=== PATIENT | female | born 1960 | race Caucasian/White ===

== ENCOUNTER 2018-08-13 20:46 | Inpatient (IN) | payer OTHER ==
[2018-08-13] MEDS: morphine 4 MG/ML VIAL IV ×2 (22:29→23:48)
[2018-08-13] MEDS: KETOROLAC 30 MG INJ IV (22:29)
[2018-08-13] MEDS: DIAZEPAM 5 MG/ML SYG IV (22:29)
[2018-08-13] MEDS: METHYLPREDNISOLONE 125 MG INJ IV (22:29)
[2018-08-13] MEDS: ONDANSETRON 4 MG INJ IV (23:48)
[2018-08-14 00:06] LABS: ADD MAN DIFF? NO
[2018-08-14 00:11] LABS: BASOPHILS % 0.4 % (0.0-2.0); EOSINOPHILS # 0.1 10^3/ul (0.0-0.5); EOSINOPHILS % 1.5 % (0.0-7.0); HEMATOCRIT 33.8 % (37.0-47.0); LYMPHOCYTES # 1.8 10^3/ul (0.8-2.9); LYMPHOCYTES % 24.5 % (15.0-51.0); MEAN CORPUSCULAR HGB CONC 32.5 g/dl (32.0-37.0); MEAN CORPUSCULAR VOLUME 89.2 fl (82.0-101.0); MEAN PLATELET VOLUME 9.4 fl (7.4-10.4); MONOCYTE # 0.4 10^3/ul (0.3-0.9); MONOCYTES % 5.7 % (0.0-11.0); NEUTROPHILS % 67.5 % (39.0-77.0); PLATELET COUNT 258 10^3/UL (140-415); RED BLOOD COUNT 3.79 10^6/ul (4.20-5.40); RED CELL DISTRIBUTION WIDTH 12.4 % (11.5-14.5)
[2018-08-14 00:11] LABS: WHITE BLOOD COUNT 7.4 10^3/ul (4.8-10.8)
[2018-08-14 00:24] LABS: ADD UMIC YES; UR AMORPHOUS CRYSTAL FEW /HPF (NONE SEEN); UR ASCORBIC ACID NEGATIVE (NEGATIVE); UR BACTERIA FEW /HPF (NONE SEEN); UR BILIRUBIN (Dip) NEGATIVE (NEGATIVE); UR BLOOD (Dip) NEGATIVE (NEGATIVE); UR CLARITY CLOUDY (CLEAR); UR COLOR YELLOW (YELLOW); UR GLUCOSE (Dip) NEGATIVE (NEGATIVE); UR KETONES (Dip) NEGATIVE (NEGATIVE); UR LEUKOCYTE ESTERASE (Dip) TRACE Leu/ul (NEGATIVE); UR NITRITE (Dip) NEGATIVE (NEGATIVE); UR RBC 1 /HPF (0-5); UR SPECIFIC GRAVITY (Dip) 1.011 (1.003-1.030); UR TOTAL PROTEIN (Dip) NEGATIVE (NEGATIVE); UR UROBILINOGEN (Dip) NEGATIVE (NEGATIVE); UR WBC 11 /HPF (0-5)
[2018-08-14 00:50] LABS: INR 0.88; PT RATIO 0.9
[2018-08-14 00:54] LABS: ALANINE AMINOTRANSFERASE 13 IU/L (13-69); ALBUMIN/GLOBULIN RATIO 1.33; ALKALINE PHOSPHATASE 55 IU/L (42-121); ANION GAP 10 (5-13); ASPARTATE AMINO TRANSFERASE 17 IU/L (15-46); BILIRUBIN,INDIRECT 0.5 mg/dl (0-1.1); BILIRUBIN,TOTAL 0.5 mg/dl (0.2-1.3); BLOOD UREA NITROGEN 20 mg/dl (7-20); CALCIUM 9.4 mg/dl (8.4-10.2); CARBON DIOXIDE 28 mmol/L (21-31); CHLORIDE 106 mmol/L (97-110); CREATININE 0.78 mg/dl (0.44-1.00); Estimated GFR > 60 mL/min (>60); GLUCOSE 113 mg/dl (70-220); LIPASE 363 U/L (23-300); POTASSIUM 4.1 mmol/L (3.5-5.1); SODIUM 144 mmol/L (135-144)
[2018-08-14] MEDS: SOD CHLORIDE 0.9% 500 ML IV (01:51)
[2018-08-14] MEDS ORDERED: ONDANSETRON 4 MG INJ IV ×3 (03:30→18:00)
[2018-08-14] MEDS ORDERED: ACETAMINOPHEN 325 MG TAB PO (03:30)
[2018-08-14] MEDS: AMLODIPINE 5 MG TAB PO ×2 (06:02→21:37)
[2018-08-14] MEDS: SOD CHLORIDE 0.9% 1,000 ML IV ×2 (06:02→21:30)
[2018-08-14] MEDS: LOSARTAN 50 MG TAB PO (09:00)
[2018-08-14] MEDS: GABAPENTIN 300 MG CAP PO (09:00)
[2018-08-14] MEDS ORDERED: LOSARTAN 50 MG TAB PO (09:00)
[2018-08-14] MEDS: morphine 4 MG/ML VIAL IV ×2 (09:40→22:00)
[2018-08-14] MEDS ORDERED: DIAZEPAM 5 MG TAB PO (10:00)
[2018-08-14] MEDS ORDERED: SEVOFLURANE 15 MIN (14:00)
[2018-08-14] MEDS ORDERED: CEFAZOLIN 1 GM INJ (14:00)
[2018-08-14] MEDS ORDERED: NEOSTIGMINE 3 MG/3 ML SYRINGE (14:01)
[2018-08-14] MEDS ORDERED: PROPOFOL 20 ML (14:01)
[2018-08-14] MEDS ORDERED: ROCURONIUM 50 MG INJ (14:01)
[2018-08-14] MEDS ORDERED: SUCCINYLCHOLINE CHLORIDE 100 MG/5 ML SYG IV (14:01)
[2018-08-14] MEDS ORDERED: GLYCOPYRROLATE 0.4 MG INJ ×2 (14:01→16:48)
[2018-08-14] MEDS ORDERED: LIDOCAINE 2% (SDV) 5 ML INJ (14:01)
[2018-08-14] MEDS ORDERED: MEPERIDINE 100 MG INJ (14:02)
[2018-08-14] MEDS ORDERED: POLYMYXIN/BACITRACIN 1L IRRIG (14:17)
[2018-08-14] MEDS: THROMBIN (BOVINE) 5,000 UNIT VIAL TP (15:37)
[2018-08-14] MEDS: BUPIVACAINE 0.5% (SDV) 30 ML INJ (16:47)
[2018-08-14] MEDS: LIDOCAINE 1%/EPI 30 ML INJ (16:47)
[2018-08-14] MEDS: GELATIN SIZE 100 SPONGE (16:48)
[2018-08-14] MEDS: METHYLPREDNISOLONE ACET 80 MG/ML 1 ML INJ (17:31)
[2018-08-14] MEDS ORDERED: METHYLPREDNISOLONE ACET 80 MG/ML 1 ML (17:32)
[2018-08-14] MEDS ORDERED: ONDANSETRON 4 MG INJ (17:41)
[2018-08-14] MEDS ORDERED: METOCLOPRAMIDE 10 MG INJ (17:41)
[2018-08-14] MEDS ORDERED: MIDAZOLAM 1 MG/ML 2 ML INJ IV (18:00)
[2018-08-14] MEDS ORDERED: NALOXONE (0.4 MG/ML) INJ IV (18:00)
[2018-08-14] MEDS ORDERED: traMADol 50 MG TAB PO (18:00)
[2018-08-14] MEDS ORDERED: BISACODYL 10 MG SUPP PR (18:00)
[2018-08-14] MEDS ORDERED: METOCLOPRAMIDE 10 MG INJ IV (18:00)
[2018-08-14] MEDS ORDERED: CYCLOBENZAPRINE 10 MG TAB PO (18:00)
[2018-08-14] MEDS ORDERED: hydrALAzine 20 MG INJ IV (18:00)
[2018-08-14] MEDS ORDERED: LABETALOL HCL 20MG INJ IV (18:00)
[2018-08-14] MEDS ORDERED: EPHEDrine 25 MG/5 ML SYG IV (18:00)
[2018-08-14] MEDS ORDERED: HYDROmorphONE 1 MG/5 ML IV SYRINGE IV (18:00)
[2018-08-14] MEDS ORDERED: MEPERIDINE 25 MG INJ IV (18:00)
[2018-08-14] MEDS ORDERED: FENTAnyl 50 MCG/ML VIAL IV (18:00)
[2018-08-14] MEDS ORDERED: HYDROmorphONE 0.5 MG/0.5 ML SYG IV (18:00)
[2018-08-14] MEDS ORDERED: LABETALOL HCL 20MG INJ (18:03)
[2018-08-14] MEDS: FENTAnyl 50 MCG/ML VIAL IV ×2 (18:32→18:56)
[2018-08-14] MEDS: CEFAZOLIN 1 GM/50 ML (PMX) 50 ML IVPB (18:33)
[2018-08-14] MEDS: HYDROmorphONE 1 MG/5 ML IV SYRINGE IV ×2 (19:12→19:20)
[2018-08-14] MEDS: DIPHENHYDRAMINE 50 MG INJ IV (19:28)
[2018-08-14] MEDS: IBUPROFEN 800 MG TAB PO ×2 (21:33→22:00)
[2018-08-14] MEDS: ATORVASTATIN 20 MG TAB PO (21:33)
[2018-08-14] MEDS: DOCUSATE SODIUM 100 MG CAP PO (21:33)
[2018-08-15] MEDS: CEFAZOLIN 1 GM/50 ML (PMX) 50 ML IVPB ×2 (01:25→09:53)
[2018-08-15] MEDS: PANTOPRAZOLE (EC) 40 MG TAB PO (05:13)
[2018-08-15] MEDS: IBUPROFEN 800 MG TAB PO ×2 (05:14→13:07)
[2018-08-15] MEDS ORDERED: PANTOPRAZOLE 40 MG INJ IV (06:00)
[2018-08-15] MEDS: SOD CHLORIDE 0.9% 1,000 ML IV ×2 (08:10→13:08)
[2018-08-15] MEDS ORDERED: BISACODYL 10 MG SUPP PR (09:30)
[2018-08-15] MEDS: GABAPENTIN 300 MG CAP PO (09:47)
[2018-08-15] MEDS: DOCUSATE SODIUM 100 MG CAP PO ×2 (09:47→20:08)
[2018-08-15] MEDS: AMLODIPINE 5 MG TAB PO ×2 (09:48→20:09)
[2018-08-15] MEDS: LOSARTAN 50 MG TAB PO (09:48)
[2018-08-15] MEDS: POLYETHYLENE GLYCOL 17 GM PACKET PO (09:53)
[2018-08-15] MEDS: MAGNESIUM HYDROXIDE 30ML CUP PO (09:53)
[2018-08-15] MEDS: ATORVASTATIN 20 MG TAB PO (20:08)
[2018-08-15] MEDS: HYDROCODONE/APAP (10/325) TAB PO (20:09)
== END 2018-08-15 21:05 | disposition home health service (06) | DRG 520 ==
LOC: FTE 20:46 → 2NE 08-14 03:21
PROC: 01NB0ZZ Release Lumbar Nerve, Open Approach (ICD-10-PCS; principal; 2018-08-14 14:00)
PROC: 0SB20ZZ Excision of Lumbar Vertebral Disc, Open Approach (ICD-10-PCS; 2018-08-14 14:00)
DX: M51.26 Other intervertebral disc displacement, lumbar region (principal); M48.061 Spinal stenosis, lumbar region without neurogenic claudication; R20.2 Paresthesia of skin; I10 Essential (primary) hypertension
CPT/HCPCS: 36415; 71045; 72114; 80053; 81001; 83690; 85025; 85610; 85730; 87081; 93005; 96374; 96375; 96376; 97116; 97161; 99285-25